=== PATIENT | male | born 1980 | race Caucasian/White ===

== ENCOUNTER 2021-09-08 18:44 | Emergency (ER) | payer BC ==
[~2021-09-08] VITALS: Ht 172.7 cm; Wt 86.2 kg
[2021-09-08] MEDS ORDERED: BACITRACIN-POL3.5 GM TOP (20:49)
== END 2021-09-08 21:47 | disposition home or self-care (01) ==
LOC: ER 18:44
DX: S61.011A Laceration without foreign body of right thumb without damage to nail, initial encounter (principal); W26.8XXA Contact with other sharp object(s), not elsewhere classified, initial encounter; Y92.89 Other specified places as the place of occurrence of the external cause